=== PATIENT | male | born 1935 | race Caucasian/White ===

== ENCOUNTER → 2016-04-28 | Outpatient (CLI) | payer OTHER ==
[~2016-04-28] MED LIST: ASPIRIN81 M2 PO; CIALIS PO; FLOMAX0.4 M1 PO; NORCO 5/325 TAB1 TAB PO; PRAVASTATIN SOD20 MG PO; SYNTHROID PO
--- NOTE | ~2016-04-28 | BD1 ---
[facility] A Service of [facility] & [facility] RADIOLOGY TEXT RESULTS PATIENT: CYNTHIA GOOD LOCATION: [facility] : 37 UNIT #: [id number] AGE: [address]: Sathya Johnson MD SEX: M ORDER DR: [id number] [facility]. [place], [place] [address] [id number] O MR#: [id number] Acc #: [id number] NAME: CYNTHIA GOOD. : 1935 SEX: M STUDY DATE/TIME: 04/28/2016 14:42 UNIT: [facility] ROOM: STUDY DESCRIPTION: BD Dexa Bone Dens 1+ Site Attending Physician: Sathya Johnson M.D. Referring Physician: Sathya Johnson M.D. Ordering Physician: Sathya Johnson M.D. Primary Care Physician: Sathya Johnson M.D. MEDICAL IMAGING REPORT This report is preliminary unless electronic signature is present EXAM Bone density spine/hip, 04/28/2016 HISTORY Screening for osteoporosis. FINDINGS Bone mineral density scanning performed upper four lumbar vertebral segments and left proximal femur in a 280 pound 81-year-old male. No comparisons. L1-L4: Total bone mineral density 1.261 g/cm2 for T-score 1.5 standard deviation above mean for reference population of normal young individuals and Z-score 2.7 standard deviations above the mean for age-matched population. Proximal left femur: Total bone mineral density 0.995 g/cm2 for a T-score 0.2 standard deviations below mean for reference population normal young individuals and Z-score 0.8 standard deviations above the mean for age-matched population. Left femoral neck specifically bone mineral density 0.828 g/cm2 for T-score 0.7 standard deviations below mean for reference population normal young individuals and Z-score 0.8 standard deviations above the mean for age-matched population. IMPRESSION Normal bone mineral density in the upper four lumbar vertebral segments overall as well as in the proximal left femur inclusive of femoral neck. Correlate with the patient's clinical status. Continued surveillance recommended as clinically warranted. [facility] A Service of [facility] & [facility] RADIOLOGY TEXT RESULTS PATIENT: CYNTHIA GOOD LOCATION: [facility] : 37 UNIT #: [id number] AGE: [address]: Sathya Johnson MD SEX: M ORDER DR: Dictated by... Anastacio Whitmore M.D. THIS IS AN ELECTRONICALLY VERIFIED REPORT Anastacio Whitmore M.D. at 04/30/2016 2:18 PM Rayo TD: 04/30/2016 08:19 JOB #: [id number] MEDICAL IMAGING REPORT Page 1 of 1 COPY
== END | disposition home or self-care (01) ==
LOC: CWCC 14:23
DX: M81.0 Age-related osteoporosis without current pathological fracture (principal)
CPT/HCPCS: 77080

== ENCOUNTER → 2016-06-09 | Outpatient (CLI) | payer OTHER ==
--- NOTE | ~2016-06-09 | CT2 ---
[facility] A Service of [facility] RADIOLOGY TEXT RESULTS PATIENT: FIGUEROA GOOD [id number] 37 UNIT #: [id number] AGE: [address]: Sathya Johnson MD SEX: M ORDER DR: [id number] [facility]. [place], [place] [address] [id number] O MR#: [id number] Acc #: [id number] NAME: FIGUEROA GOOD : 1935 SEX: M STUDY DATE/TIME: 06/09/2016 15:42 UNIT: [facility] ROOM: STUDY DESCRIPTION: CT Abd and Pelv W Cont Attending Physician: Sathya Johnson M.D. Referring Physician: Sathya Johnson M.D. Ordering Physician: Sathya Johnson M.D. Primary Care Physician: Sathya Johnson M.D. MEDICAL IMAGING REPORT This report is preliminary unless electronic signature is present EXAM CT abdomen and pelvis with contrast. INDICATION Follow up abdominal aortic aneurysm. PROCEDURE Contrast-enhanced CT of the abdomen and pelvis. 100 mL of Isovue-370. This CT exam was performed with one or more of the following radiation dose reduction techniques: automatic exposure control, adjustment of mA and/or kV according to patient size, and iterative reconstruction. COMPARISON Abdominal aorta ultrasound from 12/09/2005. FINDINGS VASCULAR: Moderately severe atherosclerotic irregularity in the abdominal aorta. There is aneurysmal dilation of the infrarenal segment up to 3.3 cm. The aneurysm is somewhat bulbous and is along the anterior margin of the infrarenal aorta. Atherosclerotic calcification at the origins of the celiac, superior mesenteric, and renal arteries but the arteries remain patent. Atherosclerotic calcification extends into the major pelvic arteries. ABDOMEN WITH CONTRAST: The liver, spleen, adrenal glands, pancreas, and gallbladder are unremarkable. Extensive colonic diverticulosis. There is a 3 cm cyst in the left kidney. PELVIS WITH CONTRAST: No pelvic mass or fluid. No aggressive appearing bone lesions. IMPRESSION [facility] A Service of [facility] RADIOLOGY TEXT RESULTS PATIENT: FIGUEROA GOOD [id number] 37 UNIT #: [id number] AGE: [address]: Sathya Johnson MD SEX: M ORDER DR: 1. No aneurysmal dilation of the infrarenal aorta up to 3.3 cm. 2. Atherosclerotic irregularity and calcification throughout the abdominal aorta and major pelvic arteries as detailed above. 3. 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 It measures up to 2.7 cm in craniocaudal extent. 4. Extensive colonic diverticulosis but no acute findings are seen in the abdomen or pelvis. Dictated by... Lew Dumont M.D. THIS IS AN ELECTRONICALLY VERIFIED REPORT Lew Dumont M.D. at 06/10/2016 3:55 PM JANEL/randy TD: 06/10/2016 09:47 JOB #: [id number] MEDICAL IMAGING REPORT Page 1 of 1 COPY
[2016-06-09 16:16] LABS: POC - CREATININE 0.78 mg/dL (0.64-1.27); POC - GFR >60.0 mL/min (>60)
== END | disposition home or self-care (01) ==
LOC: CCAT 12:23
PROVIDERS: Internal Medicine
DX: I71.4 Abdominal aortic aneurysm, without rupture (principal); I70.0 Atherosclerosis of aorta; K57.30 Diverticulosis of large intestine without perforation or abscess without bleeding
CPT/HCPCS: 74177; 82565; Q9967